=== PATIENT | female | born 1985 | race Caucasian/White ===

== ENCOUNTER 2021-07-15 00:29 | Emergency (ER) | payer OTHER, MEDICAID, SELFPAY ==
[2021-07-15 00:59] VITALS: BP 126/83; PULSE 82; RESP 16; TEMP 36.6; O2SAT 100; BMI 31.6
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
[2021-07-15] MEDS: Acetaminophen 325 MG TABLET 975 MG PO (01:31)
[2021-07-15] MEDS: Lidocaine 4 % Patch ADH..PATCH 1 PATCH TRANSDERMA (01:32)
[2021-07-15] MEDS: Ketorolac Tromethamine 15 MG/ML VIAL IM (01:40)
== END 2021-07-15 02:17 | disposition home or self-care (01) ==
PROVIDERS: Emergency Provider Student in an Organized Health Care Education/Training Program
DX: Z04.1 Encounter for examination and observation following transport accident (principal); M62.838 Other muscle spasm; M79.18 Myalgia, other site
CPT/HCPCS: 96372; 99284; J1885

== ENCOUNTER → 2021-10-23 12:43 | Outpatient (BNVA) | payer OTHER, MEDICAID, SELFPAY | PROVIDERS: Visit Provider Obstetrics & Gynecology ==

== ENCOUNTER 2021-12-05 11:02 | Outpatient (REF) | payer OTHER, SELFPAY ==
[2021-12-05 15:16] LABS: CT PCR NOT DETECTED (Not Detect.); NG PCR NOT DETECTED (Not Detect.)
== END 2021-12-05 11:03 | disposition home or self-care (01) ==
LOC: HO.LAB 11:02
PROVIDERS: PCP Internal Medicine; Visit Provider Obstetrics & Gynecology
DX: Z30.430 Encounter for insertion of intrauterine contraceptive device (principal)
CPT/HCPCS: 58300; 81025; 87491; 87591; J7298

== ENCOUNTER → 2022-01-02 13:35 | Outpatient (BNVA) | payer OTHER, SELFPAY | PROVIDERS: Visit Provider Obstetrics & Gynecology | DX: Z13.89 Encounter for screening for other disorder (principal) ==

== ENCOUNTER 2022-01-02 14:08 | Outpatient (REF) | payer SELFPAY ==
--- NOTE | ~2022-01-02 | US_ITS ---
EXAMINATION: US PELVIS CLINICAL INFORMATION: Abnormal uterine and vaginal bleeding. Check IUD. COMPARISON: None TECHNIQUE: Ultrasound of the pelvis is performed using both transabdominal and transvaginal transducers along with Doppler. Transvaginal imaging is performed due to inadequate visualization transabdominally. FINDINGS: The uterus is anteverted and slightly retroflexed and measures 8.8 x 3.2 x 5.1 cm. Endometrial thickness is normal measuring 0.5 cm. There is an IUD in the uterus. This appears to be oriented transversely with the proximal T in the right myometrium and the vertical post or stem in the endometrium. No focal uterine lesion is seen. There are nabothian cysts in the cervix. The right ovary is normal and measures 2.5 x 1.5 x 1.7 cm. The left ovary is enlarged and measures 5.7 x 4.9 x 5.6 cm. There is a 5.4 x 4.6 x 4.7 cm minimally complex left ovarian cyst with single thin septation. There is normal arterial and venous flow documented to the left ovary. There is no evidence of torsion. There is no fluid in the pelvis. US/US pelvic and transvaginal IMPRESSION: Abnormally positioned IUD. 5.4 x 4.6 x 4.7 cm minimally complex left ovarian cyst. No evidence of torsion.
== END 2022-01-02 14:09 | disposition home or self-care (01) ==
LOC: HO.US 14:08
PROVIDERS: PCP Internal Medicine; Visit Provider Obstetrics & Gynecology
DX: N93.9 Abnormal uterine and vaginal bleeding, unspecified (principal); T83.32XA Displacement of intrauterine contraceptive device, initial encounter; N83.292 Other ovarian cyst, left side; Z87.891 Personal history of nicotine dependence
CPT/HCPCS: 76830; 76856; 99212

== ENCOUNTER 2022-01-03 11:20 | Outpatient (REF) | payer OTHER, SELFPAY ==
[2022-01-03 15:41] LABS: CT PCR NOT DETECTED (Not Detect.); NG PCR NOT DETECTED (Not Detect.)
[2022-01-05 07:07] LABS: CA 125 New Method 11 U/mL (<35); CA-125 11 U/mL (<35)
== END 2022-01-03 11:21 | disposition home or self-care (01) ==
LOC: HO.LAB 11:20
PROVIDERS: Visit Provider Obstetrics & Gynecology
DX: Z30.432 Encounter for removal of intrauterine contraceptive device (principal); N83.299 Other ovarian cyst, unspecified side
CPT/HCPCS: 36415; 58301; 81025; 86304; 87491; 87591; 99212

== ENCOUNTER 2022-07-08 10:27 | Outpatient (REF) | payer OTHER, SELFPAY ==
[2022-07-08 13:57] LABS: CT PCR NOT DETECTED (Not Detect.); NG PCR NOT DETECTED (Not Detect.)
== END 2022-07-08 10:28 | disposition home or self-care (01) ==
LOC: HO.LNP 10:27
PROVIDERS: Visit Provider Obstetrics & Gynecology
DX: Z11.3 Encounter for screening for infections with a predominantly sexual mode of transmission (principal); N83.299 Other ovarian cyst, unspecified side
CPT/HCPCS: 87491; 87591; 99212